=== PATIENT | male | born 1995 | race Caucasian/White ===

== ENCOUNTER 2023-12-05 09:32 | Day surgery (SDC) | payer OTHER ==
[~2023-12-05] VITALS: Ht 175.3 cm; Wt 59.9 kg
[2023-12-05] MEDS ORDERED: MIDAZOLAM INJ 2MG/2ML VIAL As Ordered ONE (11:55)
[2023-12-05] MEDS ORDERED: fentaNYL 100 MCG/2 ML INJECTION As Ordered ONE (11:55)
[2023-12-05] MEDS ORDERED: LIDOCAINE 2% 100MG/5ML SDV (FOR ANES.) As Ordered ONE (11:56)
[2023-12-05] MEDS ORDERED: propofoL 200 MG/20 ML VIAL As Ordered ONE (11:56)
[2023-12-05] MEDS ORDERED: ACETAMINOPHEN 1000MG 100ML IV BAG As Ordered ONE (11:58)
[2023-12-05] MEDS ORDERED: ONDANSETRON 4MG 2ML VIAL As Ordered ONE (11:58)
[2023-12-05] MEDS ORDERED: ROCURONIUM BROMIDE 50MG/5ML VIAL As Ordered ONE (12:08)
[2023-12-05] MEDS ORDERED: SUGAMMADEX SODIUM 500 MG/5 ML VIAL (BRIDION) As Ordered ONE (12:24)
[2023-12-05] MEDS: LIDOCAINE W/EPINEPHRINE 1% 20ML VIAL As Ordered ONE (12:31)
[2023-12-05] MEDS ORDERED: oxyCODONE 5MG TAB PO PRN (12:45)
[2023-12-05] MEDS ORDERED: LR 1,000 ML IV SCH (12:45)
[2023-12-05] MEDS ORDERED: fentaNYL 100 MCG/2 ML INJECTION IV PRN (12:45)
[2023-12-05] MEDS ORDERED: HYDROMORPHONE HCL 0.5 MG/ 0.5 ML SYRINGE IV PRN (12:45)
[2023-12-05] MEDS: ONDANSETRON 4MG 2ML VIAL IV PRN (13:09)
[2023-12-05 14:25] VITALS: BP 131/75; TEMP 97.6; O2SAT 99
== END 2023-12-05 14:45 | disposition home or self-care (01) ==
LOC: M SDC 09:32
PROVIDERS: ATTEND Dentist Oral and Maxillofacial Surgery
DX: K01.1 Impacted teeth (principal)
CPT/HCPCS: 88300; D7220; J0131; J1100; J2250; J2405; J3010